=== PATIENT | female | born 1940 | race Hispanic/Latino ===

== ENCOUNTER 2018-01-27 18:32 | Inpatient (IN) | payer MEDICARE ==
[~2018-01-27] VITALS: Ht 152.4 cm; Wt 44.5 kg
[~2018-01-27 18:32] MED LIST: ACET325C5 PO; ATOR40TA69 PO; BISA10S PR; DIPH25 PO; DIVA250T60 PO; DOCU-116 PO; DONE10TA8 PO; GUAI100S13 PO; IPRA3AMP24 IH; LISI40TA4 PO; MELA1TAB28 PO; MEMA5TAB PO; METO25TA6 PO; RISP1TAB89 PO; VORT10TA PO
[2018-01-27] MEDS ORDERED: MEROPENEM 1 GM VIAL ONE (19:24)
[2018-01-27] MEDS ORDERED: SODIUM CHLORIDE 0.9% 100 ML IV ONE (19:24)
[2018-01-27 19:33] LABS: BASOPHILS % (AUTO) 0.3 % (0.0-5.0); EOSINOPHILS % (AUTO) 0.1 % (0.0-8.0); HEMATOCRIT 29.9 % (36-48); LYMPHOCYTES % (AUTO) 2.5 % (21.0-51.0); MEAN CORPUSCULAR HEMOGLOBIN 30.6 pg (27.0-33.0); MEAN CORPUSCULAR HGB CONC 32.7 g/dL (32.0-36.0); MEAN CORPUSCULAR VOLUME 93.6 fL (79-99); MONOCYTES % (AUTO) 3.1 % (3.0-13.0); PLATELET COUNT (AUTO) 329 K/uL (130-400); RED BLOOD CELL COUNT(AUTO) 3.19 MIL/uL (4.00-5.50); RED CELL DISTRIBUTION WIDTH 14.2 % (11.0-15.5); WHITE BLOOD COUNT (AUTO) 20.8 K/uL (4.8-10.8)
[2018-01-27] MEDS ORDERED: METHYLPREDNISOLONE SOD SUCC 125MG/2ML VIAL ONE (19:45)
[2018-01-27] MEDS ORDERED: AZITHROMYCIN 500MG+NS 250ML 250 ML IV ONE (19:45)
[2018-01-27 19:47] LABS: APPEARANCE,URINE Clear (CLEAR); BILIRUBIN,URINE Negative (NEGATIVE); COLOR,URINE Yellow (YELLOW); GLUCOSE, URINE (UA) 500 mg/dL (NEGATIVE); KETONES,URINE 15 mg/dL (NEGATIVE); LEUKOCYTE ESTERASE ,URINE Negative (NEGATIVE); NITRATE,URINE Negative (NEGATIVE); OCCULT BLOOD,URINE Small (NEGATIVE); PH,URINE 6.5 (5.0-8.0); PROTEIN,URINE Negative (NEGATIVE)
[2018-01-27 19:50] LABS: CREATININE 0.8 mg/dL (0.5-1.5); POTASSIUM 3.7 mmol/L (3.5-5.1)
[2018-01-27 19:54] LABS: ALBUMIN 2.8 g/dL (3.5-5.0); BILIRUBIN,TOTAL 0.3 mg/dL (0.2-1.0); TOTAL PROTEIN, SERUM 7.2 g/dL (6.0-8.3)
[2018-01-27 20:03] LABS: ABG BASE EXCESS 3.6 mmol/L (-2.0-3.0); ABG HCO3 28.7 mmol/L (21.0-28.0); ABG OXYGEN SATURATION 89.3 % (95.0-99.0); ABG PCO2 45 mmHg (32-45)
[2018-01-27 20:06] LABS: BACTERIA,URINE Few /HPF (None Seen); SQUAMOUS EPITHELIAL CELL,UR 0-2 /HPF (0-2); WBC,URINE 0-1 /HPF (0-1); YEAST,URINE BUDDING Rare /HPF (None Seen)
[2018-01-27] MEDS ORDERED: ALBUTEROL SULFATE 0.083% 2.5 MG/3 ML INH IH ONE (20:06)
[2018-01-27 20:11] LABS: INR 1.04 (0.85-1.15); PARTIAL THROMBOPLASTIN TIME 24.7 SEC (26.3-35.5); PROTHROMBIN TIME 10.9 SEC (9.6-11.6)
[2018-01-27] MEDS ORDERED: VANCOMYCIN PROTOCOL PER PHARMACY IV SCH (20:30)
[2018-01-27] MEDS ORDERED: AZITHROMYCIN 250 MG TABLET PO SCH (21:00)
[2018-01-27] MEDS ORDERED: VANCOMYCIN 1.5 GM in SODIUM CHLORIDE 0.9% 250 ML IV ONE (21:00)
[2018-01-27] MEDS: ACETYLCYSTEINE 10% 100MG/ML 4ML VIAL IH SCH (21:49)
[2018-01-27] MEDS: IPRATROPIUM/ALBUTEROL SULFATE 3 ML SOLUTION IH SCH (21:49)
[2018-01-28] MEDS: IPRATROPIUM/ALBUTEROL SULFATE 3 ML SOLUTION IH SCH ×6 (02:44→21:09)
[2018-01-28] MEDS: ACETYLCYSTEINE 10% 100MG/ML 4ML VIAL IH SCH ×6 (02:44→21:09)
[2018-01-28 03:14] VITALS: BP 136/88
[2018-01-28 03:45] LABS: BASOPHILS % (AUTO) 0.3 % (0.0-5.0); HEMATOCRIT 29.9 % (36-48); LYMPHOCYTES % (AUTO) 1.6 % (21.0-51.0); MEAN CORPUSCULAR HEMOGLOBIN 30.6 pg (27.0-33.0); MEAN CORPUSCULAR HGB CONC 32.9 g/dL (32.0-36.0); MEAN CORPUSCULAR VOLUME 93.1 fL (79-99); MONOCYTES % (AUTO) 1.3 % (3.0-13.0); NEUTROPHILS % (AUTO) 96.8 % (40.0-77.0); PLATELET COUNT (AUTO) 295 K/uL (130-400); RED BLOOD CELL COUNT(AUTO) 3.21 MIL/uL (4.00-5.50); RED CELL DISTRIBUTION WIDTH 14.3 % (11.0-15.5)
[2018-01-28 03:58] LABS: ALBUMIN 2.8 g/dL (3.5-5.0); BILIRUBIN,TOTAL 0.4 mg/dL (0.2-1.0); CREATININE 0.7 mg/dL (0.5-1.5); MAGNESIUM 1.9 mg/dL (1.80-2.40); POTASSIUM 3.4 mmol/L (3.5-5.1)
[2018-01-28] MEDS ORDERED: LEVOFLOXACIN 500 MG/D5W 100 ML 100 ML ONE (04:15)
[2018-01-28] MEDS ORDERED: SODIUM CHLORIDE 0.9% 100 ML IV ONE (04:19)
[2018-01-28] MEDS: MEROPENEM 1 GM VIAL IVP SCH ×3 (04:29→20:17)
[2018-01-28] MEDS: BUDESONIDE 0.5 MG/2 ML INH IH SCH ×2 (06:17→18:18)
[2018-01-28 08:08] VITALS: BP 138/56
[2018-01-28] MEDS: VANCOMYCIN 750MG + NS 250 ML IV SCH ×4 (09:17→20:22)
[2018-01-28 11:25] VITALS: BP 132/65
[2018-01-28] MEDS ORDERED: COMPOUND IV REFRIGERATED 1 EACH IVSOLN MISC PRN (13:00)
[2018-01-28] MEDS ORDERED: ACETAMINOPHEN ELIXIR 650 MG/20.3 ML UDCUP PEG PRN (15:15)
[2018-01-28] MEDS ORDERED: ACETAMINOPHEN ELIXIR 650 MG/20.3 ML UDCUP ONE (15:24)
[2018-01-28 16:31] VITALS: BP 139/76
[2018-01-28] MEDS ORDERED: AZITHROMYCIN 250 MG TABLET PO SCH (18:00)
[2018-01-28 19:11] VITALS: BP 138/58
[2018-01-28 23:06] VITALS: BP 166/78
[2018-01-29] MEDS: ACETYLCYSTEINE 10% 100MG/ML 4ML VIAL IH SCH ×4 (01:29→14:18)
[2018-01-29] MEDS: IPRATROPIUM/ALBUTEROL SULFATE 3 ML SOLUTION IH SCH ×6 (01:29→21:40)
[2018-01-29 03:10] VITALS: BP 133/66
[2018-01-29 03:46] LABS: BASOPHILS % (AUTO) 0.3 % (0.0-5.0); HEMATOCRIT 25.7 % (36-48); LYMPHOCYTES % (AUTO) 6.4 % (21.0-51.0); MEAN CORPUSCULAR HEMOGLOBIN 30.8 pg (27.0-33.0); MEAN CORPUSCULAR HGB CONC 33.2 g/dL (32.0-36.0); MEAN CORPUSCULAR VOLUME 92.8 fL (79-99); MONOCYTES % (AUTO) 7.4 % (3.0-13.0); NEUTROPHILS % (AUTO) 85.9 % (40.0-77.0); PLATELET COUNT (AUTO) 285 K/uL (130-400); RED BLOOD CELL COUNT(AUTO) 2.78 MIL/uL (4.00-5.50); RED CELL DISTRIBUTION WIDTH 14.3 % (11.0-15.5); WHITE BLOOD COUNT (AUTO) 14.1 K/uL (4.8-10.8)
[2018-01-29 04:02] LABS: ALBUMIN 2.3 g/dL (3.5-5.0); BILIRUBIN,TOTAL 0.4 mg/dL (0.2-1.0); CREATININE 0.7 mg/dL (0.5-1.5); POTASSIUM 3.6 mmol/L (3.5-5.1); TOTAL PROTEIN, SERUM 5.9 g/dL (6.0-8.3)
[2018-01-29] MEDS: MEROPENEM 1 GM VIAL IVP SCH ×3 (04:07→20:21)
[2018-01-29] MEDS: BUDESONIDE 0.5 MG/2 ML INH IH SCH ×2 (06:03→18:28)
[2018-01-29 07:44] VITALS: BP 138/70
[2018-01-29] MEDS: VANCOMYCIN 750MG + NS 250 ML IV SCH ×6 (10:02→22:50)
[2018-01-29 11:09] VITALS: BP 154/71
[2018-01-29 16:05] VITALS: BP 149/81
[2018-01-29] MEDS: DIVALPROEX SODIUM 250 MG TABLET.DR PO SCH (18:00)
[2018-01-29] MEDS ORDERED: ACETAMINOPHEN 325 MG TAB PO PRN (18:00)
[2018-01-29 19:20] VITALS: BP 150/70
[2018-01-29] MEDS: RISPERIDONE 1 MG TABLET PO SCH (20:21)
[2018-01-29] MEDS: METOPROLOL TARTRATE 25 MG TAB PO SCH (20:22)
[2018-01-29] MEDS: MEMANTINE HCL 5 MG TABLET PO SCH (20:22)
[2018-01-29] MEDS: OSELTAMIVIR PHOSPHATE 75 MG CAP PO SCH (20:22)
[2018-01-29] MEDS: DOCUSATE SODIUM 100 MG CAP PO SCH (20:22)
[2018-01-29] MEDS ORDERED: ATORVASTATIN CALCIUM 40 MG TABLET PO SCH (21:00)
[2018-01-29] MEDS ORDERED: DONEPEZIL HCL 5 MG TAB PO SCH (21:00)
[2018-01-30 00:16] VITALS: BP 152/76
[2018-01-30 00:29] VITALS: BP 152/76
[2018-01-30] MEDS: IPRATROPIUM/ALBUTEROL SULFATE 3 ML SOLUTION IH SCH ×4 (01:42→13:16)
[2018-01-30 03:37] VITALS: BP 158/77
[2018-01-30] MEDS: MEROPENEM 1 GM VIAL IVP SCH ×2 (04:05→12:24)
[2018-01-30] MEDS ORDERED: LEVOFLOXACIN 500 MG/D5W 100 ML 100 ML IV SCH (05:00)
[2018-01-30 05:39] LABS: EOSINOPHILS % (AUTO) 0.4 % (0.0-8.0); HEMATOCRIT 27.5 % (36-48); LYMPHOCYTES % (AUTO) 9.9 % (21.0-51.0); MEAN CORPUSCULAR HEMOGLOBIN 31.4 pg (27.0-33.0); MEAN CORPUSCULAR HGB CONC 33.7 g/dL (32.0-36.0); MEAN CORPUSCULAR VOLUME 93.1 fL (79-99); MONOCYTES % (AUTO) 7.7 % (3.0-13.0); PLATELET COUNT (AUTO) 307 K/uL (130-400); RED BLOOD CELL COUNT(AUTO) 2.95 MIL/uL (4.00-5.50); RED CELL DISTRIBUTION WIDTH 14.5 % (11.0-15.5)
[2018-01-30 05:47] LABS: ALBUMIN 2.4 g/dL (3.5-5.0); BILIRUBIN,TOTAL 0.4 mg/dL (0.2-1.0); CREATININE 0.7 mg/dL (0.5-1.5); POTASSIUM 3.7 mmol/L (3.5-5.1); TOTAL PROTEIN, SERUM 6.5 g/dL (6.0-8.3)
[2018-01-30] MEDS: BUDESONIDE 0.5 MG/2 ML INH IH SCH (06:12)
[2018-01-30 07:00] VITALS: BP 147/67
[2018-01-30] MEDS: DIVALPROEX SODIUM 250 MG TABLET.DR PO SCH ×2 (09:00→14:00)
[2018-01-30] MEDS: RISPERIDONE 1 MG TABLET PO SCH ×2 (09:00→14:00)
[2018-01-30] MEDS ORDERED: ENOXAPARIN SODIUM 30 MG/0.3 ML SQ SCH (09:00)
[2018-01-30] MEDS: MEMANTINE HCL 5 MG TABLET PO SCH (09:00)
[2018-01-30] MEDS: RISPERIDONE 0.5 MG TABLET PO SCH ×2 (09:00→14:00)
[2018-01-30] MEDS: OSELTAMIVIR PHOSPHATE 75 MG CAP PO SCH (09:00)
[2018-01-30] MEDS: METOPROLOL TARTRATE 25 MG TAB PO SCH (09:00)
[2018-01-30] MEDS: DOCUSATE SODIUM 100 MG CAP PO SCH (09:00)
[2018-01-30 11:00] VITALS: BP 160/86
[2018-01-30] MEDS ORDERED: VANCOMYCIN HCL 500 MG VIAL IV SCH (13:00)
[2018-01-30] MEDS: VANCOMYCIN 500MG+NS 100ML 100 ML IV SCH ×2 (14:23→15:55)
[2018-01-30 16:00] VITALS: BP 141/86
== END 2018-01-30 19:37 | DRG 871 ==
LOC: EDH 18:32 → EDHIP 20:06 → 2DH 01-28 02:26
PROVIDERS: ADMIT Internal Medicine; ATTEND Internal Medicine
DX: A41.9 Sepsis, unspecified organism (principal); J96.01 Acute respiratory failure with hypoxia; J69.0 Pneumonitis due to inhalation of food and vomit; E44.0 Moderate protein-calorie malnutrition; Z68.1 Body mass index [BMI] 19.9 or less, adult; E87.6 Hypokalemia; D64.9 Anemia, unspecified; F02.80 Dementia in other diseases classified elsewhere, unspecified severity, without behavioral disturbance, psychotic disturbance, mood disturbance, and anxiety; F31.9 Bipolar disorder, unspecified; G30.9 Alzheimer's disease, unspecified; I10 Essential (primary) hypertension; J44.9 Chronic obstructive pulmonary disease, unspecified; R13.10 Dysphagia, unspecified; Z74.01 Bed confinement status; Z86.73 Personal history of transient ischemic attack (TIA), and cerebral infarction without residual deficits; Z88.1 Allergy status to other antibiotic agents; Z88.0 Allergy status to penicillin; Z88.2 Allergy status to sulfonamides
CPT/HCPCS: 36415; 36600; 71045; 74230; 80053; 80202; 81001; 82803; 83605; 83735; 84484; 85025; 85610; 85730; 87040; 87088; 87804; 92611; 93005; 94640; 94664; 94667; 94668; 99291; J0456; J1956; J2185; J2930; J3370; J7030; J7608